=== PATIENT | male | born 1985 | race Two or more races ===

== ENCOUNTER 2019-12-15 14:55 | Emergency (ER) | payer BC ==
[~2019-12-15] VITALS: Ht 182.9 cm; Wt 86.2 kg
[~2019-12-15 14:55] MED LIST: IBUPROFEN600 MG ORAL; NORCO 5-325 TA1 EACH ORAL
--- NOTE | 2019-12-15 15:05 | NUR ---
ED Nurse Note: Patient walked into ED from home c/o pain and numbness in his penis. Patient denies any recent trauma. Patient AxO x 4.
[2019-12-15] MEDS ORDERED: PENTOXIFYLLINE400 MG ORAL (15:08)
[2019-12-15] MEDS ORDERED: CIALIS5 MG PO (15:09)
[2019-12-15 15:10] VITALS: BP 110/78
--- NOTE | 2019-12-15 15:15 | NUR ---
ED Nurse Note: Dr. Chinchilla at bedside
--- NOTE | 2019-12-15 15:29 | NUR ---
ED Nurse Note: Urine sent to lab
--- NOTE | 2019-12-15 15:33 | NUR ---
ED Nurse Note: Dr. Chinchilla at bedside
[2019-12-15] MEDS ORDERED: PSEUDOEPHEDRINE60 MG PO (15:39)
[2019-12-15 15:44] VITALS: BP 110/78
--- NOTE | 2019-12-15 15:44 | NUR ---
ER DISCHARGE NOTE: Patient is cleared to be discharged per ERMD, pt is aox4, on room air, with stable vital signs. pt was given dc and prescription instructions, pt was able to verbalize understanding, pt id band removed. pt is able to ambulate with steady gait. pt took all belongings.
[2019-12-15] MEDS ORDERED: Pseudoephedrine 30mg tab ORAL ONE (15:45)
[2019-12-15 15:50] LABS: APPEARANCE,URINE CLEAR; BILIRUBIN, URINE NEGATIVE (NEGATIVE); GLUCOSE, URINE (UA) NEGATIVE (NEGATIVE); KETONES,URINE NEGATIVE (NEGATIVE); LEUKOCYTE ESTERASE ,URINE NEGATIVE (NEGATIVE); NITRITE,URINE NEGATIVE (NEGATIVE); PH,URINE 6 (4.5-8.0); PROTEIN,URINE NEGATIVE (NEGATIVE); UROBILINOGEN,URINE 1 MG/DL (0.0-1.0)
[2019-12-15 16:12] LABS: COLOR,URINE YELLOW
--- NOTE | 2019-12-20 23:33 | Emergency Room Report ---
History of Present Illness General Chief Complaint: Male Urogenital Problems Source: Patient Present Illness HPI 34 yo Male presents to ED for evaluation. States that he had a erection which lasted for several hours since yesterday. States it is mostly resolved but he still has some discomfort. Pain is dull, 3 out of 10, nonradiating. States he takes Cialis. States this is happened in the past. Denies any dysuria hematuria. Denies fevers or chills. No other aggravating relieving factors. Denies any other associated symptoms Allergies: Coded Allergies: HALOPERIDOL (Verified Allergy, Severe, 12/15/19) COVID-19 Screening Contact w/high risk pt: No Recent Travel to affected area: No Experienced COVID-19 symptoms?: No COVID-19 Testing performed LAW TUTOR: No Patient History Past Medical History: none Past Surgical History: none Pertinent Family History: none Social History: Denies: smoking, alcohol use, drug use Immunizations: UTD Reviewed Nursing Documentation: PMH: Agreed; PSxH: Agreed Nursing Documentation-PMH Past Medical History: No History, Except For Review of Systems All Other Systems: negative except mentioned in HPI Physical Exam Sp02 EP Interpretation: reviewed, normal General Appearance: no apparent distress, alert, GCS 15, non-toxic Head: normocephalic, atraumatic Eyes: bilateral eye normal inspection, bilateral eye PERRL ENT: hearing grossly normal, normal pharynx, no angioedema, normal voice Neck: full range of motion, supple/symm/no masses Respiratory: chest non-tender, lungs clear, normal breath sounds, speaking full sentences Cardiovascular #1: regular rate, rhythm, no edema Cardiovascular #2: 2+ carotid (R), 2+ carotid (L), 2+ radial (R), 2+ radial (L) , 2+ dorsalis pedis (R), 2+ dorsalis pedis (L) Gastrointestinal: normal bowel sounds, non tender, soft, non-distended, no guarding, no rebound Rectal: deferred Genitourinary: normal inspection, no CVA tenderness, other - no evidence of erection. no discharge Musculoskeletal: back normal, normal range of motion, gait/station normal, non- tender Neurologic: alert, motor strength/tone normal, oriented x3, sensory intact, responsive, speech normal Psychiatric: judgement/insight normal, memory normal, mood/affect normal, no suicidal/homicidal ideation Reflexes: 3+ bicep (R), 3+ bicep (L), 3+ tricep (R), 3+ tricep (L), 3+ knee (R) , 3+ knee (L) Skin: no rash Lymphatic: no adenopathy Medical Decision Making Diagnostic Impression: Primary Impression: Priapism ER Course Hospital Course 37 yo M presents c/o penile discomfort. h/o priapsm Differential diagnoses include: hydrocele, varicocele, epididymitis, priapism Clinical course Patient placed on stretcher. After initial history and physical physical exam reveals male in no acute distress. On exam there is no evidence of priapsm. Patient is flaccid. No discomfort or pain at this time. No scrotal pain or swelling I discussed with urology. Stated that no further acute interventions required at this time. Patient is no longer erect. No acute signs of priapsim. recommends sudafed. No emergent evaluation required. No indication for ultrasound at this time. Close follow-up with urology in outpatient setting. I discussed findings with patient. Given Sudafed. Safe for discharge for close outpatient follow-up. I will provide referrals iagnosis - priapism stable and discharged to home with prescription for sudafed. Followup with urology. Return to ED if symptoms recur or worsen Status: improved Disposition: HOME, SELF-CARE Condition: Stable Scripts Pseudoephedrine Hcl* (SUDAFED*) 60 Mg Tablet 60 MG PO Q6H for 5 Days, TAB Prov: Fadi Chinchilla MD 12/15/19 Referrals: Barrera Almonte MD NON PHYSICIAN (PCP) Patient Instructions: Fadi Birmingham MD Dec 20, 2019 23:33
== END 2019-12-15 15:44 | disposition home or self-care (01) ==
LOC: EMR 15:27
DX: N48.30 Priapism, unspecified (principal); Z88.8 Allergy status to other drugs, medicaments and biological substances
CPT/HCPCS: 81003; 99282